=== PATIENT | male | born 1970 | race Caucasian/White ===

== ENCOUNTER → 2021-11-26 | Outpatient (CLI) | payer BC ==
--- NOTE | 2021-11-26 09:37 | US ---
EXAMINATION TYPE: US abdomen complete DATE OF EXAM: 11/26/2021 COMPARISON: NONE CLINICAL HISTORY: R10.9 Abdominal Pain. abd pressure and pain for 2 years EXAM MEASUREMENTS: Liver Length: 15.2 cm Gallbladder Wall: 0.7 cm CBD: 0.5 cm Spleen: 9.1 cm Right Kidney: 10.9 x 4.6 x 5.1 cm Left Kidney: 11.7 x 4.7 x 6.3 cm Pancreas: not seen due to bowel gas Liver: There is a 1.0 x 1.0 x 0.9 cm hyperechoic. Right lobe liver. This is nonspecific but could be related to a hemangioma. Gallbladder: thickened wall, 1.8cm stone within neck, smaller stones seen throughout Evidence for sonographic Tong's sign: no CBD: wnl Spleen: wnl Right Kidney: wnl Left Kidney: wnl Upper IVC: wnl Abd Aorta: only distal portion seen due to bowel gas IMPRESSION: 1. Clinical correlation recommended for acute cholecystitis. 2. Suspected hemangioma within the liver.
== END | disposition home or self-care (01) ==
LOC: RADUSWWP 07:36
PROVIDERS: ATTEND Family Medicine
DX: K81.0 Acute cholecystitis (principal)
CPT/HCPCS: 76700